=== PATIENT | female | born 1990 | race American Indian/Alaskan Native ===

== ENCOUNTER 2017-09-17 11:36 | Emergency (ER) | payer MEDICAID ==
--- NOTE | 2017-09-17 13:40 | OBDCSUM ---
Datetime: 09/17/2017 13:39 Discharged to, Provider: Home Follow up at, Provider: Clinic Disch Instr Diet: Regular Discharge Instructions, Provider: Routine instructions given Discharge Time: 09/17/2017 13:39 Follow up in weeks, Provider: tomorrow Contraception discussed, Prov: Yes Discharge Diagnosis Prov Other: Term , undelivered
--- NOTE | 2017-09-17 13:41 | OBHP ---
Datetime: 09/17/2017 12:19 IP Adm Impression: Term, intrauterine IP Admit Plan: Observation/Evaluation Admit Comment, IP Provider: 27 yo at 40.4 weeks GA based on LMP 12/07/16, c/w frist trimester US, EDC 09/13/17 presents to [facility] c/o leaking clear fluids since yesterday at 11 am after having a m embrance in [facility] office. Denies VB, CTX. Reports +FM. Pt is GBS neg. PNC: [facility], Last visit 09/16/17 PNL: A+, AB neg, hiv neg, rpr neg, gc/c neg rubella immune, hbsag neg, Quantiferon neg, pap neg. pmhx: denies pshx: denies social hx: hx positive marijuana on 01/27/17, denies ETOH or cigarettes smoking. family hx: denies hx CAD, DMII or CA meds: PNV allergies: NKDA Assessment: 27 yo IUP@40.4 weeks GA, presents for suspected ROM. GBS negative Plan: NST OB Hospitalist Addendum: Pt seen and examined by me. Agree w/ above. 27 yo at 40+4 wks w / c/o leaking of fluid on and off since her membranes were strippped in the office yesterday at 11am. Pt denies VB, ctxns, and reports FM. Spec: white d/c, no odor, neg nitrazine, neg pool, neg fernin g. Pt denies MAN, vision changes, abd pain, and N/V. NST reactive. GBS negative. Pt discharged kenny e w/ labor precautions. Pt t/o f/u in clinic tomorrow. (ES) Extremities - PN: Normal Abdomen - PN: Normal Back - PN: Normal Lungs - PN: Normal Heart - PN: Normal Neurologic - PN: Normal HEENT - PN: Normal General - PN: Normal FHR - Baseline A Provider: 130 Membranes, Provider: Intact Contraction Comments Provider: Q2-5 Pool Provider: Negative Nitrazine Provider: Negative Ferning Provider: Negative IP Hx Assessment: The History has been Reviewed and is Current Vital Signs Provider: Reviewed IP Chief Complaint: Suspected ruptured membranes NICHD Variability Prov Fetus A: Moderate 6-25bpm NICHD Accel Fetus A IP Provider: 15X15 FHR Category Provider Fetus A: Category I NICHD Decel Fetus A IP Provider: None; Early Dilatation, Provider: 1 Effacement, Provider: 80 Station, Provider: -3 Genitourinary Exam: Normal
[2017-09-18 03:55] VITALS: BP 133/82; PULSE 77; RESP 18; TEMP 98.3; O2SAT 100
== END 2017-09-17 13:00 | disposition home or self-care (01) ==
LOC: H.EROB2 11:36 → H.L&D 11:36 → H.EROB2 13:00
DX: O47.1 False labor at or after 37 completed weeks of gestation (principal); Z3A.40 40 weeks gestation of pregnancy; O48.0 Post-term pregnancy

== ENCOUNTER 2017-09-20 05:16 | Inpatient (IN) | payer MEDICAID ==
[2017-09-20 06:49] VITALS: BMI 32.8
[2017-09-20] MEDS ORDERED: Lactated Ringer's 1,000 ML IV SCH (07:00)
[2017-09-20 07:50] LABS: BASO % 0.3 % (0.0-2.0); EOS % 0.4 % (0.0-4.0); HEMOGLOBIN 11.5 g/dL (12.0-16.0); LYMPH # 1.5 K/uL (1.0-4.3); LYMPH % 12.1 % (20.0-40.0); MEAN CELL VOLUME 85.6 fl (81.0-99.0); MEAN CORPUSCULAR HEMOGLOBIN 27.9 pg (27.0-31.0); MEAN CORPUSCULAR HGB CONC 32.5 g/dL (33.0-37.0); MEAN PLATELET VOLUME 8.7 fl (7.2-11.7); MONO # 0.9 K/uL (0.0-0.8); MONO % 7.1 % (0.0-10.0); NEUT # 9.8 K/uL (1.8-7.0); NEUT % 80.1 % (50.0-75.0); NRBC % 0.1 % (0.0-0.0); RBC 4.12 Mil/uL (3.80-5.20); WHITE BLOOD COUNT 12.2 K/uL (4.8-10.8)
--- NOTE | 2017-09-20 07:50 | OBADHP ---
Datetime: 09/20/2017 06:00 Admit Comment, IP Provider: 27 yo at 41 weeks GA based on LMP 12/07/16, c/w frist trimester U S, EDC 09/13/17, c/o uterine CTX that began at 23:30 last night, occurs every 5-6 minutes and 10/10 i ntensity. Pt also reports LOF since 3 days ago which has been increasing in quantity progressively. N o VB. FM present. pt denies headache, visual disturbances, CP, SOB, N/V, urianry complainst or prurit us. NKDA Meds: PNV [facility]: [facility], Last visit 09/16/17 PNL: A+, AB neg, hiv neg, rpr neg, gc/c neg rubella immune, hbsag neg, Quantiferon neg, pap neg. PMHx: denies PSHx: denies SHx: hx positive marijuana on 01/27/17, denies ETOH or cigarettes smoking. FHx: denies hx CAD, DMII or CA A/P 27 y/o F with IUP at 41 weeks with CTX and cervical changes, entering labor, with Hx of positi ve urine for cannabinoids. -Admit pt to L_D -Urine drug screen. -Initiate labor protocol Case discussed with Dr Macario, OB director of home economics Nathalie PGY-1. Addendum: I saw examined patient presentation. Patient grossly ruptured and in early labor. Maternal being a nd being reassuring at this time. Plan to admit for management of labor and delivery. Discussed with patient and all patient questions answered. Pelvic Type - PN: Adequate Extremities - PN: Normal Back - PN: Normal Lungs - PN: Normal Heart - PN: Normal Thyroid - PN: Normal Neurologic - PN: Normal HEENT - PN: Normal General - PN: Normal FHR - Baseline A Provider: 150s Amniotic Fluid Color, Provider: Clear Membranes, Provider: Ruptured Pool Provider: Positive IP Hx Assessment: The History has been Reviewed and is Current Vital Signs Provider: Reviewed IP Chief Complaint: Uterine contractions; Suspected ruptured membranes; Other NICHD Variability Prov Fetus A: Moderate 6-25bpm NICHD Accel Fetus A IP Provider: 15X15 FHR Category Provider Fetus A: Category I Dilatation, Provider: 2 Effacement, Provider: 90 Station, Provider: -1 Genitourinary Exam: Normal EGA AdmitDate IP: 41.0 IP Adm Impression: Term, intrauterine IP Admit Plan: Admit to unit; Initiate labor protocol Datetime: 09/17/2017 12:19 Abdomen - PN: Normal Contraction Comments Provider: Q2-5 Nitrazine Provider: Negative Ferning Provider: Negative NICHD Decel Fetus A IP Provider: None; Early
[2017-09-20 08:07] LABS: BARBITURATES, UR NEGATIVE (NEGATIVE); BENZODIAZEPINES, UR NEGATIVE (NEGATIVE); OPIATES, UR NEGATIVE (NEGATIVE); PHENCYCLIDINE, UR NEGATIVE (NEGATIVE)
[2017-09-20] MEDS ORDERED: Bupivacaine HCl 0.25% PF (10 ml) Inj ONE (09:38)
[2017-09-20] MEDS ORDERED: Fentanyl/Bupivacaine HCl 250 ML EPI ONE (09:38)
[2017-09-20] MEDS: Lactated Ringer's 1,000 ML IV SCH ×2 (10:15→11:13)
[2017-09-20] MEDS ORDERED: Oxytocin 30 UNITS in Sodium Chloride 0.9% 500 ML IV SCH (13:00)
[2017-09-20] MEDS ORDERED: Lidocaine 1% Inj (20ml) ONE (13:56)
[2017-09-20] MEDS ORDERED: Oxycodone/Acetaminophen 5/325 mg Tab PO PRN ×4 (19:51→22:09)
[2017-09-20] MEDS ORDERED: Benzocaine/Menthol SPRAY TOP PRN ×2 (19:51→22:09)
--- NOTE | 2017-09-20 20:23 | OBDS ---
DELIVERY PERSONNEL Delivery Doctor: malaika Anesthesiologist: Marilyn Pérez MD Sourcing Engineer: anni MATERNAL INFORMATION Delivery Anesthesia: Epidural Medications in Delivery: pitocin for augmentation 30 units Estimated Blood Loss (ml): 250 Placenta Cultured: No placenta to lab Maternal Complications: Other Other Maternal Complications: tacycardia + variable decel Provider Comments: Intrapartum diagnosis: 41 week labor with spontaneous ruptured membranes diagnosis: Same; thick meconium Procedure: Spontaneous vaginal delivery; placenta delivered spontaneously and intact; Repair of fi rst-degree laceration Manager Drilling: Carlene. Resident: PGY 1 Dr. Perdomo Findings viable male infant: Thick meconium: Apgars 7 and 9; weight 7 lbs. 1 oz. Destination patient remains in birthing room; to nursery for further observation Estimated blood loss: 300 mL LABOR SUMMARY EDC: 09/13/2017 00:00 No. Babies in Womb: 1 Labor Anesthesia: Epidural LABOR INFORMATION Onset of Labor: 09/20/2017 00:00 Complete Dilatation: 09/20/2017 16:20 Oxytocin: Augmentation Group B Beta Strep: Negative Antibiotics # of Doses: none MEMBRANES Membranes Rupture Method: Spontaneous Rupture of Membranes: 09/20/2017 00:00 Length of Rupture (hrs): 18.83 Amniotic Fluid Color: Clear Amniotic Fluid Amount: Moderate Amniotic Fluid Odor: Normal STAGES OF LABOR Stage 1 hrs: 16 Stage 1 min: 20 Stage 2 hrs: 2 Stage 2 min: 30 Stage 3 hrs: 0 Stage 3 min: 10 Total Time in Labor hrs: 19 Total Time in Labor min: 0 VAGINAL DELIVERY Episiotomy: None Laceration Extension: First Degree Laceration Type: Perineal Laceration Repair Note: Repair first degree perineal laceration with 3-0 Polysorb. Initial Vag Sponge Count: 5 Final Vag Sponge Count: 5 Initial Vag Sharps Count: 1 Final Vag Sharps Count: 1 Sharps Count Correct: Yes BABY A INFORMATION Delivery Date/Time: 09/20/2017 18:50 Method of Delivery: Vaginal Born in Route : Yes : N/A Forceps: N/A Vacuum Extraction: N/A Shoulder Dystocia : No SHOULDER DYSTOCIA BABY A Infant Delivery Date/Time: 09/20/2017 18:50 PRESENTATION/POSITION BABY A Presentation: Cephalic Cephalic Presentation: Vertex Vertex Position: Left Occipital Anterior Breech Presentation: N/A PLACENTA INFORMATION BABY A Placenta Delivery Time : 09/20/2017 19:00 Placenta Method of Delivery: Spontaneous Placenta Status: Delivered SCORES BABY A Heart Rate 1 min: >100 bpm Resp Effort 1 min: Slow, Irregular Reflex Irritability 1 min: Cough or Sneeze or Pulls Away Muscle Tone 1 min: Some Flexion of Extremities Color 1 min: Body [place], Extremities Blue SCORE 1 MIN: 7 Heart Rate 5 min: >100 bpm Resp Effort 5 min: Good Cry Reflex Irritability 5 min: Cough or Sneeze or Pulls Away Muscle Tone 5 min: Active Motion Color 5 min: Body [place], Extremities Blue SCORE 5 MIN: 9 Heart Rate 10 min: >100 bpm Resp Effort 10 min: Good Cry Reflex Irritability 10 min: Cough or Sneeze or Pulls Away Muscle Tone 10 min: Active Motion Color 10 min: Completely [place] SCORE 10 MIN: 10 INFORMATION BABY A Gestational Age at Delivery: 41.0 Gestational Status: Term Infant Outcome : Liveborn Infant Condition : Stable Infant Sex: Male IDENTIFICATION/MEDS BABY A ID Band Number: [id number] ID Band Location: Right Leg; Left Leg WEIGHT/LENGTH BABY A Infant Birthweight (gms): 3215 Weight (lb): 7 Weight (oz): 1 CORD INFORMATION BABY A No. Cord Vessels: 3 Nuchal Cord : N/A True Knot: none Infant Cord pH Baby Arterial: yes to lab Cord Blood Taken: Yes Banking/Donate Info: no Suction: Mouth; Nose ASSESSMENT BABY A Physical Findings at Delivery: Within Normal Limits Respirations: Appears Normal Building Stonecutter/ALS Called : Yes Care By: dr godinez/ alia cintron Transferred To: [facility] [place] [facility]
[2017-09-21 07:21] LABS: HEMOGLOBIN 10.2 g/dL (12.0-16.0); MEAN CELL VOLUME 87.1 fl (81.0-99.0); MEAN CORPUSCULAR HEMOGLOBIN 27.5 pg (27.0-31.0); MEAN CORPUSCULAR HGB CONC 31.6 g/dL (33.0-37.0); RBC 3.71 Mil/uL (3.80-5.20); RED CELL DISTRIBUTION WIDTH 14.5 % (11.5-14.5); WHITE BLOOD COUNT 18.4 K/uL (4.8-10.8)
--- NOTE | 2017-09-21 09:20 | OBPPN ---
Datetime: 09/21/2017 07:39 PP Pain Prov: Within normal limits PP Nausea Prov: Denies PP Flatus Prov: No PP BM Prov: No PP Breasts Prov: Normal PP Heart Prov: Normal PP Lungs Prov: Normal PP Abdomen/Uterus Prov: Normal PP Lochia Prov: Normal PP Vulva/Perineum Prov: Normal PP CVA Tenderness Prov: Not Done PP Extremities Prov: Normal PP C/S Incision Prov: Not Applicable PP Progress Prov: Normal PP Impression Prov: Normal progression PP Plan Prov: Continue present management PP Progress Note Prov: S: 22 YO s/p NVD on 09/20/17. PPD #1. Seen and examined at bedside. No a cute events overnight. Pt reports mild pelvic pain controlled with pain meds. Ambulation well to the bathroom. Breast/Bottle feeding without difficulty. Tolerating PO diet well. Lochia is similar to men ses volume. -Bowel movement, not yet passing gas. Denies fever/chills, diarrhea, nausea/vomiting, CP/ SOB , Lightheadedness, calf pain. O: GEN: A_O, Resting comfortably in bed, NAD HEENT: White sclera, pink conjunctiva, oral mucosa moist. Lungs: CTA B/L, no wheezing ,rhonci, or rales Cardio: RRR, S1,S2 NL ABD: ND, +BS, firm fundus 1cm above the umbilical level. EXT: No edema, calves nontender NEURO: AAOx3 Assessment/Plan: 22 YO s/p NVD on 09/20/17. Gave to baby boy. Pt remains afebrile, tole rating pain with medication, doing well on PPD 1. Continue regular diet OOB with caution Percocet for mod/severe pain and Ibuprofen for mild pain. Colace and Simethicone for constipation Encourage and ambulation Dalia Acosta, PGY I The patient was seen with the resident I agree with the notes Vital Signs Provider PP: Reviewed; Within Normal Limits
--- NOTE | 2017-09-22 08:06 | OBPPN ---
Datetime: 09/22/2017 06:20 PP Pain Prov: Within normal limits PP Nausea Prov: Denies PP Flatus Prov: Yes PP BM Prov: No PP Breasts Prov: Not Done PP Heart Prov: Normal PP Lungs Prov: Normal PP Abdomen/Uterus Prov: Normal PP Vulva/Perineum Prov: Normal PP CVA Tenderness Prov: Normal PP Extremities Prov: Normal PP C/S Incision Prov: Not Applicable PP Progress Prov: Normal PP Impression Prov: Normal progression PP Plan Prov: Discharge PP Progress Note Prov: S: 27 y/o now [id number] PPD 2. Pt had a NVD on 09/20/17 with 1st degree perin eal laceration. No acute events overnight. Pt reports mild pelvic pain controlled with provided analg esics. Pt tolerating PO, ambulating and voiding with no issues. Pt supplementing with formula only, f r now as per patient. Lochia is less than menses volume. Pt passing gasses but no bowel movement yet. Pt denies fever, visual disturbances, headache, CP, SOB, nausea/vomiting, or pruritus. O: Post- H/H was 10.2/32.3 PE Gen: Pt resting comfortably on bed, AAOx3, not in acute distress. Lungs: CTA B/L. No W/R/R. CV: S1 S2 present, regular rhythm. Abd: BS+, soft, fundus of uterus firm and at level of umbilicus. Ext: no edema, neg Reynaldo's sign, non-tender calves. NEURO/PSYCH: no grossly focal deficit, preserved affect and mood. A/P: 27 y/o F on PPD 2, recovering well from . -Will discharge pt home today. -Encourage . Ambulate with caution, no heavy lifting, nothing per vagina for 6 weeks. -Continue PNV 1 tab PO daily. -Ibuprofen 600mg PO PRN for moderate pain. -If excessive bleeding, intolerable pain or fever despite medications, go to ER. -Pt instructed to set appointment within 4-6 weeks for post- evaluation. Jose Elias Zelaya PGY-1 OB Hospitalist Addendum: Pt seen and examined by me. Agree w/ above. PPD 2 s/p , doing well, bottle feeding. Discharge home. (ES) IP PP Procedures: None Vital Signs Provider PP: Reviewed
--- NOTE | 2017-09-22 08:06 | OBDCSUM ---
Datetime: 09/22/2017 06:25 Discharged to, Provider: Home Follow up at, Provider: [facility] Disch Instr Activity: Normal activity Disch Instr Diet: Regular Discharge Instructions, Provider: Routine instructions given Discharge Diagnosis, Provider: Term Delivered Discharge Time: 09/22/2017 11:00 Follow up in weeks, Provider: 4-6 weeks Disch Referrals: None Disch Activity Restrictions: No lifting; Minimize stair-climbing; No sexual activity; Nothing in vag rain - [place], tampons, douche Discharge Comment, Provider: -Encourage . Ambulate with caution, no heavy lifting, noth ing per vagina for 6 weeks. -Continue PNV 1 tab PO daily. -Ibuprofen 600mg PO PRN for moderate pain. -If excessive bleeding, intolerable pain or fever despite medications, go to ER. -Pt instructed to set appointment within 4-6 weeks for post- evaluation. Jose Elias Zelaya PGY-1 Contraception after Delivery: Not Planning to Use
[2017-09-22 19:10] VITALS: BP 136/78; PULSE 88; RESP 20; TEMP 98.3; O2SAT 100
== END 2017-09-22 13:37 | disposition home or self-care (01) | DRG 373 ==
LOC: H.EROB2 05:16 → H.EROB 05:43 → H.EROB2 06:51 → H.L&D 06:51 → H.OB/GYN 22:05
PROVIDERS: ADMIT Obstetrics & Gynecology; ATTEND Obstetrics & Gynecology
PROC: 10E0XZZ Delivery of Products of Conception, External Approach (ICD-10-PCS; principal; 2017-09-20)
PROC: 0HQ9XZZ Repair Perineum Skin, External Approach (ICD-10-PCS; 2017-09-20)
PROC: 4A1HXCZ Monitoring of Products of Conception, Cardiac Rate, External Approach (ICD-10-PCS; 2017-09-20)
DX: O48.0 Post-term pregnancy (principal); O70.0 First degree perineal laceration during delivery; O76 Abnormality in fetal heart rate and rhythm complicating labor and delivery; O77.0 Labor and delivery complicated by meconium in amniotic fluid; Z3A.41 41 weeks gestation of pregnancy; Z37.0 Single live birth